=== PATIENT | female | born 1970 | race Two or more races ===

== ENCOUNTER → 2016-12-24 | Outpatient (CLI) | payer OTHER | END | disposition home or self-care (01) | LOC: CFH 08:20 | PROVIDERS: ATTEND Obstetrics & Gynecology | DX: N83.201 Unspecified ovarian cyst, right side (principal); D25.9 Leiomyoma of uterus, unspecified; N64.4 Mastodynia; N63 Unspecified lump in breast | CPT/HCPCS: 76641; 76830; G0204 ==